=== PATIENT | male | born 1965 ===

== ENCOUNTER 2016-12-09 15:07 | Observation (INO) | payer MEDICARE, OTHER ==
--- NOTE | 2016-12-09 15:56 | ED PDOC ---
HPI: Chest Pain Time Seen by Provider: 12/09/16 15:31 Chief Complaint (Nursing): Chest Pain Chief Complaint (Provider): chest pain History Per: Patient Additional Complaint(s): 51-year-old male presents to emergency department complaining of chest pain that started yesterday. Patient states the chest pain does not radiate and he denies any associated shortness of breath or dyspnea on exertion. Patient denies any coughing. Patient states several years ago he had 3 stents placed in his heart. He rates current chest pain as a 7 out of 10. Past Medical History Reviewed: Historical Data, Nursing Documentation, Vital Signs Vital Signs: Last Vital Signs Temp 99.4 F 12/09/16 15:14 Pulse 69 12/09/16 17:31 Resp 19 12/09/16 17:31 BP 153/91 H 12/09/16 17:31 Pulse Ox 98 12/09/16 17:31 - Medical History PMH: CAD, Diabetes, Hypercholesterolemia - Surgical History Surgical History: Coronary Stent (x 3) - Family History Family History: States: No Known Family Hx - Living Arrangements Living Arrangements: With Family - Social History Current smoker - smoking cessation education provided: No Alcohol: None Drugs: Denies - Home Medications Home Medications: Ambulatory Orders Medication Instructions Recorded Clopidogrel [Plavix] 75 mg PO DAILY 12/09/16 Glimepiride [amaRYL] 4 mg PO DAILY 12/09/16 MetFORMIN [glucoPHAGE] 1,000 mg PO BID 12/09/16 [place]-3 Fatty Acids [[place]-3] 1,000 mg PO BID 12/09/16 Pravastatin Sodium [Pravachol] 40 mg PO HS 12/09/16 Valsartan [Diovan] 160 mg PO DAILY 12/09/16 hydroCHLOROthiazide [Hydrodiuril] 25 mg PO DAILY 12/09/16 - Allergies Allergies/Adverse Reactions: Allergies Allergy/AdvReac Type Severity Reaction Status Date / Time No Known Allergies Allergy Verified 12/09/16 15:11 CAMILO Risk Score for UA/NSTEMI - CAMILO Risk Score Age > 64: NO 3 or more CAD Risk Factors: YES Known CAD (Stenosis greater than 50%): NO Aspirin use in past 7 days: NO Severe Angina: NO EKG ST changes greater than 0.5mm: NO Positive Cardiac Marker: NO CAMILO Score: 1 Risk %: 5% Curb-65 Severity Score - CURB-65 Severity Score Confusion: No Bun >19mg/dl (>7mmol/L): No Respiratory Rate greater than/equal to 30: No Systolic BP <90 or Diastolic BP less than/equal 60mmHg: No Age >64: No Curb-65 Score: 0 Percentage 30-day mortality: 0.6% Wells Criteria for PE - Wells Criteria for Pulmonary Embolism Clinical Signs and Symptoms of DVT: No P.E is #1 Diagnosis, or Equally Likely: No Heart Rate >100: No Immobilization at least 3 days;Surgery previous 4 weeks: No Previous, objectively diagnosed PE or DVT: No Hemoptysis: No Malignancy w/treatment within 6 months, or palliative: No Total Score: 0 Review of Systems ROS Statement: Except As Marked, All Systems Reviewed And Found Negative Constitutional: Negative for: Fever Cardiovascular: Positive for: Chest Pain. Negative for: Palpitations, Light Headedness Respiratory: Negative for: Shortness of Breath, SOB with Exertion Gastrointestinal: Negative for: Nausea Neurological: Negative for: Headache, Dizziness Physical Exam - Reviewed Nursing Documentation Reviewed: Yes Vital Signs Reviewed: Yes - Physical Exam Appears: Positive for: Well, Non-toxic, No Acute Distress Skin: Negative for: Rash Eye Exam: Positive for: Normal appearance, EOMI, PERRL Cardiovascular/Chest: Positive for: Regular Rate, Rhythm Respiratory: Positive for: Normal Breath Sounds Extremity: Positive for: Normal ROM Neurologic/Psych: Positive for: Alert, Oriented - Laboratory Results Result Diagrams: 12/09/16 14:45 12/09/16 16:51 - ECG Interpretation Of ECG: NSR 69 bpm, T wave inversions, no previous available for comparison, reviewed by PA and ED attending O2 Sat by Pulse Oximetry: 99 Pulse Ox Interpretation: Normal Disposition - Clinical Impression Clinical Impression: Chest pain - Patient ED Disposition Is Patient to be Admitted: Yes - Disposition Disposition Time: 18:00 Condition: FAIR Forms: [employer] Connect ([place]) - Pt Status Changed To: Hospital Disposition Of: Observation - POA Present On Arrival: None Results - Lab Results Lab Results: 12/09/16 12/09/16 16:51 14:45 WBC 7.5 RBC 3.69 L Hgb 13.0 Hct 39.2 MCV 106.2 H MCH 35.2 H MCHC 33.1 RDW 13.3 Plt Count 77 L MPV 10.8 Neut % (Auto) 67.5 Lymph % (Auto) 20.0 [place] % (Auto) 8.8 Eos % (Auto) 2.9 Baso % (Auto) 0.8 Neut # 5.0 Lymph # 1.5 [place] # 0.7 Eos # 0.2 Baso # 0.1 Sodium 136 Potassium 3.9 Chloride 97 L Carbon Dioxide 27 Anion Gap 16 BUN 17 Creatinine 1.0 Est GFR ( Amer) > 60 Est GFR (Non-Af Amer) > 60 Random Glucose 165 H Calcium 9.7 Total Bilirubin 1.0 AST 77 H ALT 76 H Alkaline Phosphatase 67 Troponin I 0.0140 Total Protein 7.7 Albumin 4.4 Globulin 3.3 Albumin/Globulin Ratio 1.4
[2016-12-09] MEDS ORDERED: Sodium Chloride 0.9% 1,000 ML IV STA (16:00)
--- NOTE | 2016-12-09 16:41 | RAD ---
HISTORY: chest pain COMPARISON: 11/16/2010. FINDINGS: LUNGS: The lungs are clear. PLEURA: No significant pleural effusion identified, no pneumothorax apparent. CARDIOVASCULAR: Normal. OSSEOUS STRUCTURES: No significant abnormalities. VISUALIZED UPPER ABDOMEN: Normal. OTHER FINDINGS: None. IMPRESSION: No active pulmonary disease.
[2016-12-09 17:00] LABS: BASO # 0.1 K/uL (0.0-0.2); BASO % 0.8 % (0.0-2.0); EOS # 0.2 K/uL (0.0-0.7); EOS % 2.9 % (0.0-4.0); HEMATOCRIT 39.2 % (35.0-51.0); LYMPH # 1.5 K/uL (1.0-4.3); MEAN CELL VOLUME 106.2 fl (80.0-94.0); MEAN CORPUSCULAR HEMOGLOBIN 35.2 pg (27.0-31.0); MEAN CORPUSCULAR HGB CONC 33.1 g/dL (33.0-37.0); MEAN PLATELET VOLUME 10.8 fl (7.2-11.7); MONO # 0.7 K/uL (0.0-0.8); MONO % 8.8 % (0.0-10.0); NEUT % 67.5 % (50.0-75.0); NRBC % 0.1 % (0.0-0.0); RED CELL DISTRIBUTION WIDTH 13.3 % (11.5-14.5); WHITE BLOOD COUNT 7.5 K/uL (4.8-10.8)
[2016-12-09 17:07] LABS: ALB/GLOB RATIO 1.4 (1.0-2.1); ALKALINE PHOSPHATASE 67 U/L (38-126); ALT/SGPT 76 U/L (21-72); AST/SGOT 77 U/L (17-59); BLOOD UREA NITROGEN 17 mg/dl (9-20); CALCIUM 9.7 mg/dL (8.4-10.2); CARBON DIOXIDE 27 mmol/L (22-30); CHLORIDE 97 mmol/L (98-107); GFR AFRICAN-AMERICAN > 60; GLUCOSE,RANDOM 165 mg/dL (75-110); POTASSIUM 3.9 MMOL/L (3.6-5.0); SODIUM 136 mmol/l (132-148); TOTAL PROTEIN 7.7 G/DL (6.3-8.2)
[2016-12-10 06:24] LABS: HEMATOCRIT 37.8 % (35.0-51.0); MEAN CELL VOLUME 105.5 fl (80.0-94.0); MEAN CORPUSCULAR HEMOGLOBIN 35.5 pg (27.0-31.0); MEAN CORPUSCULAR HGB CONC 33.7 g/dL (33.0-37.0); WHITE BLOOD COUNT 7.1 K/uL (4.8-10.8)
[2016-12-10 06:32] LABS: ALB/GLOB RATIO 1.2 (1.0-2.1); ALKALINE PHOSPHATASE 55 U/L (38-126); ALT/SGPT 70 U/L (21-72); AST/SGOT 60 U/L (17-59); BILIRUBIN,TOTAL 0.9 mg/dl (0.2-1.3); BLOOD UREA NITROGEN 10 mg/dl (9-20); CALCIUM 9.1 mg/dL (8.4-10.2); CARBON DIOXIDE 29 mmol/L (22-30); CHLORIDE 95 mmol/L (98-107); CHOLESTEROL 199 mg/dL (0-199); GFR AFRICAN-AMERICAN > 60; GLUCOSE,RANDOM 117 mg/dL (75-110); POTASSIUM 3.4 MMOL/L (3.6-5.0); SODIUM 133 mmol/l (132-148)
[2016-12-10 07:00] LABS: THYROID STIMULATING HORMONE 3.04 mIU/ML (0.46-4.68)
[2016-12-10 07:39] LABS: RBC URINE < 1 /hpf (0-3); URINE BILIRUBIN NEGATIVE (NEGATIVE); URINE BLOOD NEGATIVE (NEGATIVE); URINE COLOR YELLOW (YELLOW); URINE GLUCOSE (UA) 150 mg/dL (Normal); URINE KETONE NEGATIVE (NEGATIVE); URINE LEUKOCYTE ESTERASE NEG Leu/uL (Negative); URINE PROTEIN NEGATIVE (NEGATIVE); WBC URINE < 1 /hpf (0-5)
[2016-12-10] MEDS ORDERED: GlipiZIDE 10 mg SR Tab PO SCH (08:00)
[2016-12-10 08:36] VITALS: O2SAT 100
--- NOTE | 2016-12-10 08:50 | CP.PCM.CON ---
History of Present Illness - History of Present Illness History of Present Illness: This 51-year-old -[place] male , a hypertensive and diabetic with dyslipidemia and an ex-smoker came to the emergency room complaining of pain in the left infraclavicular area quite unconnected to any physical activity. He gives history of having required coronary stenting approximately 4 years back following which he stopped having retrosternal pain which used to occur on walking. Subsequent coronary stenting these pains have not recurred and the patient is able to walk number of blocks and climb couple of flights of stairs without experiencing any chest pain. He denies any symptoms of congestive cardiac failure. He admits to eating salty food and reports that his blood pressure is often elevated during examination. He also reports that he has undergone a stress test 4 months back and was told that the findings were satisfactory. His mother was diabetic and had coronary artery disease. Physical examination shows a middle aged -[place] male was able to lie virtually flat and breathe comfortably and carry on a conversation. His respiratory rate was 14 but as per minute and his heart rate was 70 bpm and regular. His blood pressure was 154/94 mmHg. His jugular venous pressure was not elevated and there was erythema over his lower extremity. His pedal pulses were well felt. There were no carotid bruits. His extremities are warm and his nailbeds were pink. There was no central or peripheral cyanosis. The apex was not palpable. The first and second heart sounds were normal. There was no cardiac murmur and no gallop was audible. There were no rales. His abdomen was soft liver and spleen are not palpable. His electrocardiogram showed sinus rhythm with a pattern of left ventricular hypertrophy and attendant ST-T abnormalities. His lab data showed the troponin levels 2 were normal indicating that there was no myocyte injury. His platelet count was 70,000. This was confirmed on repeat testing as well. Impression: Atypical chest pain with no evidence of acute coronary syndrome. Stable coronary artery disease with status post coronary stenting in the past. History of hypertension, diabetes and dyslipidemia. Thrombocytopenia. The patient may be allowed to return home and be followed by his international logistics coordinator whom he plans to see. In light of thrombocytopenia the use of antiplatelet drugs will have to be reevaluated. Past Patient History - Past Medical History & Family History Past Medical History?: Yes - Past Social History Smoking Status: Never Smoked - CARDIAC Hx Hypercholesterolemia: Yes Hx Hypertension: Yes - PULMONARY Hx Respiratory Disorders: No - NEUROLOGICAL Hx Neurological Disorder: No - HEENT Hx HEENT Problems: No - RENAL Hx Chronic Kidney Disease: No - ENDOCRINE/METABOLIC Hx Diabetes Mellitus Type 2: Yes - HEMATOLOGICAL/ONCOLOGICAL Hx Blood Disorders: No - INTEGUMENTARY Hx Dermatological Problems: No - MUSCULOSKELETAL/RHEUMATOLOGICAL Hx Musculoskeletal Disorders: No Hx Falls: No - GASTROINTESTINAL Hx Gastrointestinal Disorders: No - GENITOURINARY/GYNECOLOGICAL Hx Genitourinary Disorders: No - PSYCHIATRIC Hx Psychophysiologic Disorder: No Hx Substance Use: No - SURGICAL HISTORY Hx Coronary Stent: Yes (x 3) - ANESTHESIA Hx Anesthesia: Yes Hx Anesthesia Reactions: No Hx Malignant Hyperthermia: No Has any member of the family had a problem w/ anesthesia?: No Meds Allergies/Adverse Reactions: Allergies Allergy/AdvReac Type Severity Reaction Status Date / Time No Known Allergies Allergy Verified 12/09/16 15:11 - Medications Medications: Current Medications Clopidogrel Bisulfate (Plavix) 75 mg PO DAILY [facility] Glipizide (Glucotrol Xl) 10 mg PO BRK [facility] Hydrochlorothiazide (Hydrodiuril) 25 mg PO DAILY [facility] Metformin HCl (Glucophage) 1,000 mg PO BID [facility] Valsartan (Diovan) 160 mg PO DAILY [facility] Last Admin: 12/10/16 04:48 Dose: 160 mg Results - Vital Signs Recent Vital Signs: Last Vital Signs Temp 98.1 F 12/10/16 08:35 Pulse 67 12/10/16 08:35 Resp 18 12/10/16 08:35 BP 179/95 H 12/10/16 08:35 Pulse Ox 100 12/10/16 08:35 - Labs Result Diagrams: 12/10/16 05:00 12/10/16 05:00 Labs: Laboratory Results - last 24 hr 12/09/16 12/09/16 12/10/16 22:07 22:48 00:50 WBC RBC Hgb Hct MCV MCH MCHC RDW Plt Count Sodium Potassium Chloride Carbon Dioxide Anion Gap BUN Creatinine Est GFR ( Amer) Est GFR (Non-Af Amer) POC Glucose (mg/dL) 68 159 H Random Glucose Calcium Total Bilirubin AST ALT Alkaline Phosphatase Troponin I 0.0170 Total Protein Albumin Globulin Albumin/Globulin Ratio Triglycerides Cholesterol LDL Cholesterol Direct HDL Cholesterol TSH 3rd Generation Urine Color Urine Clarity Urine pH Ur Specific [place] Urine Protein Urine Glucose (UA) Urine Ketones Urine Blood Urine Nitrate Urine Bilirubin Urine Urobilinogen Ur Leukocyte Esterase Urine RBC (Auto) Urine Microscopic WBC 12/10/16 12/10/16 12/10/16 05:00 05:00 05:16 WBC 7.1 RBC 3.58 L Hgb 12.7 Hct 37.8 MCV 105.5 H MCH 35.5 H MCHC 33.7 RDW 13.0 Plt Count 71 L Sodium 133 Potassium 3.4 L Chloride 95 L Carbon Dioxide 29 Anion Gap 12 BUN 10 Creatinine 0.7 L Est GFR ( Amer) > 60 Est GFR (Non-Af Amer) > 60 POC Glucose (mg/dL) 121 H Random Glucose 117 H Calcium 9.1 Total Bilirubin 0.9 AST 60 H D ALT 70 Alkaline Phosphatase 55 Troponin I Total Protein 7.0 Albumin 3.9 Globulin 3.1 Albumin/Globulin Ratio 1.2 Triglycerides 84 Cholesterol 199 LDL Cholesterol Direct 52 HDL Cholesterol 121 H TSH 3rd Generation 3.04 Urine Color Urine Clarity Urine pH Ur Specific [place] Urine Protein Urine Glucose (UA) Urine Ketones Urine Blood Urine Nitrate Urine Bilirubin Urine Urobilinogen Ur Leukocyte Esterase Urine RBC (Auto) Urine Microscopic WBC 12/10/16 07:00 WBC RBC Hgb Hct MCV MCH MCHC RDW Plt Count Sodium Potassium Chloride Carbon Dioxide Anion Gap BUN Creatinine Est GFR ( Amer) Est GFR (Non-Af Amer) POC Glucose (mg/dL) Random Glucose Calcium Total Bilirubin AST ALT Alkaline Phosphatase Troponin I Total Protein Albumin Globulin Albumin/Globulin Ratio Triglycerides Cholesterol LDL Cholesterol Direct HDL Cholesterol TSH 3rd Generation Urine Color Yellow Urine Clarity Clear Urine pH 7.0 Ur Specific [place] 1.014 Urine Protein Negative Urine Glucose (UA) 150 Urine Ketones Negative Urine Blood Negative Urine Nitrate Negative Urine Bilirubin Negative Urine Urobilinogen 2.0 Ur Leukocyte Esterase Neg Urine RBC (Auto) < 1 Urine Microscopic WBC < 1
[2016-12-10 12:21] VITALS: BP 162/95; PULSE 72; RESP 20; TEMP 98.4
--- NOTE | 2016-12-10 15:09 | CP.PCM.HP ---
History of Present Illness - History of Present Illness History of Present Illness: CC Chest pain 51 y/o M, came to ER [facility], [place] to be evaluated for Chest pain, mid to left chest, onset night [employer] with no relief, pain was non radiated and no associated, pain was dull, tightness, of intermittent moderate severity 4-5:10. Worsening symptoms: Hx of CAD with coronary stent x3 4 yrs ago. Pt had Stress test 4 month ago and was told to be normal. Pt denied: Fever, chills, n/v/d, abdominal pain, dizziness, tachycardia, palpitations, SOB, cough, sick contact. PMHx: CAD with Coronary stent x 3, HTN, Dyslipidemia. CXR shows: No active pulmonary disease. Present on Admission - Present on Admission Any Indicators Present on Admission: No Review of Systems - Review of Systems All systems: reviewed and no additional remarkable complaints except (HPI) Past Patient History - Past Medical History & Family History Past Medical History?: Yes Pertinent Family History: Mother CAD, DMII. - Past Social History Smoking Status: Never Smoked Alcohol: None Drugs: Denies Home Situation {Lives}: With Family - CARDIAC Hx Cardiac Disorders: Yes Hx Hypercholesterolemia: Yes Hx Hypertension: Yes - PULMONARY Hx Respiratory Disorders: No - NEUROLOGICAL Hx Neurological Disorder: No - HEENT Hx HEENT Problems: No - RENAL Hx Chronic Kidney Disease: No - ENDOCRINE/METABOLIC Hx Endocrine Disorders: Yes Hx Diabetes Mellitus Type 2: Yes - HEMATOLOGICAL/ONCOLOGICAL Hx Blood Disorders: No - INTEGUMENTARY Hx Dermatological Problems: No - MUSCULOSKELETAL/RHEUMATOLOGICAL Hx Musculoskeletal Disorders: No Hx Falls: No - GASTROINTESTINAL Hx Gastrointestinal Disorders: No - GENITOURINARY/GYNECOLOGICAL Hx Genitourinary Disorders: No - PSYCHIATRIC Hx Psychophysiologic Disorder: No Hx Substance Use: No - SURGICAL HISTORY Hx Surgeries: Yes Hx Coronary Stent: Yes (x 3) - ANESTHESIA Hx Anesthesia: Yes Hx Anesthesia Reactions: No Hx Malignant Hyperthermia: No Has any member of the family had a problem w/ anesthesia?: No Meds Home Medications: Home Medication List Medication Instructions Recorded Confirmed Type Clopidogrel [Plavix] 75 mg PO DAILY #30 tab 12/10/16 Rx Allergies/Adverse Reactions: Allergies Allergy/AdvReac Type Severity Reaction Status Date / Time No Known Allergies Allergy Verified 12/09/16 15:11 Physical Exam - Constitutional Appears: No Acute Distress - Head Exam Head Exam: NORMAL INSPECTION - Eye Exam Eye Exam: PERRL - ENT Exam ENT Exam: Normal Exam - Neck Exam Neck exam: Positive for: Normal Inspection - Respiratory Exam Respiratory Exam: NORMAL BREATHING PATTERN - Cardiovascular Exam Cardiovascular Exam: REGULAR RHYTHM - GI/Abdominal Exam GI & Abdominal Exam: Normal Bowel Sounds, Soft - Extremities Exam Extremities exam: Positive for: normal inspection - Back Exam Back exam: NORMAL INSPECTION - Neurological Exam Neurological exam: Alert, Oriented x3 Additional comments: No motor sensory deficit. - Psychiatric Exam Psychiatric exam: Normal Mood - Skin Skin Exam: Erythema (L/E), Warm Results - Vital Signs Recent Vital Signs: Last Vital Signs Temp 98.4 F 12/10/16 12:21 Pulse 72 12/10/16 12:21 Resp 20 12/10/16 12:21 BP 162/95 H 12/10/16 12:21 Pulse Ox 100 12/10/16 12:21 reviewed [place] - Labs Result Diagrams: 12/10/16 05:00 12/10/16 05:00 Labs: Laboratory Results - last 24 hr 12/09/16 12/09/16 12/10/16 22:07 22:48 00:50 WBC RBC Hgb Hct MCV MCH MCHC RDW Plt Count Sodium Potassium Chloride Carbon Dioxide Anion Gap BUN Creatinine Est GFR ( Amer) Est GFR (Non-Af Amer) POC Glucose (mg/dL) 68 159 H Random Glucose Hemoglobin A1c Calcium Total Bilirubin AST ALT Alkaline Phosphatase Troponin I 0.0170 Total Protein Albumin Globulin Albumin/Globulin Ratio Triglycerides Cholesterol LDL Cholesterol Direct HDL Cholesterol TSH 3rd Generation Urine Color Urine Clarity Urine pH Ur Specific [place] Urine Protein Urine Glucose (UA) Urine Ketones Urine Blood Urine Nitrate Urine Bilirubin Urine Urobilinogen Ur Leukocyte Esterase Urine RBC (Auto) Urine Microscopic WBC 12/10/16 12/10/16 12/10/16 05:00 05:00 05:00 WBC 7.1 RBC 3.58 L Hgb 12.7 Hct 37.8 MCV 105.5 H MCH 35.5 H MCHC 33.7 RDW 13.0 Plt Count 71 L Sodium 133 Potassium 3.4 L Chloride 95 L Carbon Dioxide 29 Anion Gap 12 BUN 10 Creatinine 0.7 L Est GFR ( Amer) > 60 Est GFR (Non-Af Amer) > 60 POC Glucose (mg/dL) Random Glucose 117 H Hemoglobin A1c 6.1 Calcium 9.1 Total Bilirubin 0.9 AST 60 H D ALT 70 Alkaline Phosphatase 55 Troponin I Total Protein 7.0 Albumin 3.9 Globulin 3.1 Albumin/Globulin Ratio 1.2 Triglycerides 84 Cholesterol 199 LDL Cholesterol Direct 52 HDL Cholesterol 121 H TSH 3rd Generation 3.04 Urine Color Urine Clarity Urine pH Ur Specific [place] Urine Protein Urine Glucose (UA) Urine Ketones Urine Blood Urine Nitrate Urine Bilirubin Urine Urobilinogen Ur Leukocyte Esterase Urine RBC (Auto) Urine Microscopic WBC 12/10/16 12/10/16 12/10/16 05:16 07:00 11:00 WBC RBC Hgb Hct MCV MCH MCHC RDW Plt Count Sodium Potassium Chloride Carbon Dioxide Anion Gap BUN Creatinine Est GFR ( Amer) Est GFR (Non-Af Amer) POC Glucose (mg/dL) 121 H Random Glucose Hemoglobin A1c Calcium Total Bilirubin AST ALT Alkaline Phosphatase Troponin I 0.0130 Total Protein Albumin Globulin Albumin/Globulin Ratio Triglycerides Cholesterol LDL Cholesterol Direct HDL Cholesterol TSH 3rd Generation Urine Color Yellow Urine Clarity Clear Urine pH 7.0 Ur Specific [place] 1.014 Urine Protein Negative Urine Glucose (UA) 150 Urine Ketones Negative Urine Blood Negative Urine Nitrate Negative Urine Bilirubin Negative Urine Urobilinogen 2.0 Ur Leukocyte Esterase Neg Urine RBC (Auto) < 1 Urine Microscopic WBC < 1 12/10/16 11:27 WBC RBC Hgb Hct MCV MCH MCHC RDW Plt Count Sodium Potassium Chloride Carbon Dioxide Anion Gap BUN Creatinine Est GFR ( Amer) Est GFR (Non-Af Amer) POC Glucose (mg/dL) 127 H Random Glucose Hemoglobin A1c Calcium Total Bilirubin AST ALT Alkaline Phosphatase Troponin I Total Protein Albumin Globulin Albumin/Globulin Ratio Triglycerides Cholesterol LDL Cholesterol Direct HDL Cholesterol TSH 3rd Generation Urine Color Urine Clarity Urine pH Ur Specific [place] Urine Protein Urine Glucose (UA) Urine Ketones Urine Blood Urine Nitrate Urine Bilirubin Urine Urobilinogen Ur Leukocyte Esterase Urine RBC (Auto) Urine Microscopic WBC reviewed J.P. - Imaging and Cardiology Chest x-ray Status: Report reviewed by me (J.P.) Assessment & Plan (1) Chest pain, atypical Status: Acute Priority: High (2) DMII (diabetes mellitus, type 2) Status: Chronic Priority: Medium - Assessment and Plan (Free Text) Plan: Pt cleared by Docket Clerk to be discharged, f/u PMD and private Cardiology as out Pt. - Date & Time Date: 12/10/16 Time: 09:30
== END 2016-12-10 13:15 | disposition home or self-care (01) ==
LOC: H.ER 15:07 → H.ERHOLD 18:05 → H.TEL 20:39
PROVIDERS: ADMIT Internal Medicine Pulmonary Disease; ATTEND Internal Medicine Pulmonary Disease
DX: R07.89 Other chest pain (principal); D69.6 Thrombocytopenia, unspecified; E11.9 Type 2 diabetes mellitus without complications; E78.00 Pure hypercholesterolemia, unspecified; E78.5 Hyperlipidemia, unspecified; I10 Essential (primary) hypertension; I25.10 Atherosclerotic heart disease of native coronary artery without angina pectoris; Z95.5 Presence of coronary angioplasty implant and graft; Z87.891 Personal history of nicotine dependence
CPT/HCPCS: 36415; 71010; 80053; 80061; 81003; 82948; 83036; 84443; 84484; 85025; 85027; 99282; G0378; J7040